=== PATIENT | female | born 1950 | race African-American/Black ===

== ENCOUNTER 2017-11-05 08:32 | Day surgery (SDC) | payer BC, MEDICARE ==
[2017-11-05] MEDS ORDERED: OXYCODONE-ACETAMINOPHEN 5-325 MG TABLET PO PRN ×2 (09:55)
[2017-11-05] MEDS ORDERED: DIPHENHYDRAMINE HCL 50 MG/ML VIAL IV PRN (09:55)
[2017-11-05] MEDS ORDERED: FENTANYL CITRATE INJ/PF 100 MCG/2 ML AMPUL IV PRN ×3 (09:55)
[2017-11-05] MEDS ORDERED: MEPERIDINE HCL/PF INJ 25 MG/1 ML DISP.SYRIN IV PRN (09:55)
[2017-11-05] MEDS ORDERED: PROMETHAZINE HCL INJ 25 MG/1 ML VIAL IV PRN ×2 (09:55)
[2017-11-05] MEDS ORDERED: PROPOFOL INJ 200 MG/20 ML VIAL IV ONE (10:06)
[2017-11-05] MEDS ORDERED: MIDAZOLAM 2 MG/2 ML INJ ONE (10:06)
[2017-11-05] MEDS ORDERED: DEXTROSE 5%-1/2 NORMAL SALINE 1,000 ML IV PRN (10:17)
[2017-11-05] MEDS ORDERED: PROMETHAZINE HCL INJ 25 MG/1 ML VIAL INJ PRN (11:00)
[2017-11-05] MEDS ORDERED: ACETAMINOPHEN 325 MG TABLET PO PRN (11:00)
[2017-11-05] MEDS ORDERED: SIMETHICONE 80 MG TAB.CHEW PO PRN (11:00)
--- NOTE | 2017-11-05 11:27 | Operative Report ---
Operative Report DATE OF SURGERY: 11/05/17 Operative Report: The risks, benefits and alternatives of the procedure including risks of bleeding, perforation requiring surgery are explained to the patient in detail and informed consent is obtained. The patient has taken back to the operating room and placed in the left, lateral decubital position. Timeout was called. Propofol medication is administered. A rectal examination is done which did not reveal any masses, tears or fissures. An Olympus videoscope was inserted into the patient's rectum. The scope was then carefully advanced all the way to the cecum. The cecum was identified by the usual anatomical landmarks including the ileocecal valve as well as the appendiceal office. Photodocumentation is obtained. The scope was then sequentially pulled back via the various segments of the colon including the ascending colon, hepatic flexure, transverse colon, splenic flexure, descending colon and finally into the rectosigmoid portions of the colon. Retroflexion maneuvers performed. The risks benefits and alternatives of the procedure explained to the patient in detail and informed consent is obtained.A GIF Olympus video scope was inserted into the patient's mouth and hypopharynx, the esophagus is identified intubated and insufflated, the scope was then advanced through the esophagus stomach and duodenum, retroflexion maneuver is done, the esophagus stomach and first and second portions of the duodenum examined PREOPERATIVE DIAGNOSIS: Blood in stool POSTOPERATIVE DIAGNOSIS: Internal hemorrhoids. Diverticulosis. Right-sided colon inflammation status post biopsy rule out lymphocytic, microscopic, collagenous colitis. Gastritis status post biopsy rule out Helicobacter pylori OPERATION: Colonoscopy with biopsy. EGD with biopsy SURGEON: ALIZE DONNELLY ANESTHESIA: LMAC TISSUE REMOVED OR ALTERED: As noted above. COMPLICATIONS: None. ESTIMATED BLOOD LOSS: None. INTRAOPERATIVE FINDINGS: As noted above. PROCEDURE: Patient tolerated the procedure well. No immediate postprocedure complications are noted. Patient discharged in good condition. Discharge date 11/05/2017. Discharge diet: Regular. Discharge activity: Regular. 2-3 week follow-up to discuss findings. Patient is instructed call the office or proceed to the emergency room should there be any further problems or questions. We will wait on the pathology.
[2017-11-05 13:19] VITALS: BP 140/65
== END 2017-11-05 11:25 | disposition home or self-care (01) ==
LOC: OROUT 08:32
PROVIDERS: ATTEND Internal Medicine Gastroenterology
DX: K52.9 Noninfective gastroenteritis and colitis, unspecified (principal); K29.50 Unspecified chronic gastritis without bleeding; K57.30 Diverticulosis of large intestine without perforation or abscess without bleeding; K64.8 Other hemorrhoids; K92.1 Melena; E78.5 Hyperlipidemia, unspecified; I10 Essential (primary) hypertension; Z79.899 Other long term (current) drug therapy
CPT/HCPCS: 43239; 45380; 88305 ×2; J2250; J2704; 813

== ENCOUNTER 2018-08-20 17:51 | Emergency (ER) | payer MEDICARE ==
--- NOTE | 2018-08-20 18:15 | ER Document Report ---
ED Medical Screen (RME) - General Chief Complaint: Facial Swelling Stated Complaint: FACIAL SWELLING Time Seen by Provider: 08/20/18 18:08 Primary Care Provider: TIKA VELA PA-C [Primary Care Provider] - Follow up as needed Mode of Arrival: Ambulatory Information source: Patient Notes: Patient with swelling of left side of face and lips. Patient denies any diffic ulty breathing. Patient states that she has been taking lisinopril even though she had a similar episode of facial swelling after taking lisinopril about a year ago. hx: HTN I have greeted and performed a rapid initial assessment of this patient. A comprehensive ED assessment and evaluation of the patient, analysis of test results and completion of the medical decision making process will be conducted by additional ED providers. TRAVEL OUTSIDE OF THE [place] IN LAST 30 DAYS: No - Related Data Allergies/Adverse Reactions: No Known Allergies Allergy (Verified 11/05/17 08:59) Past Medical History - Social History Frequency of alcohol use: None Drug Abuse: None - Past Medical History Cardiac Medical History: Reports: Hx Hypercholesterolemia, Hx Hypertension - ON MEDS Denies: Hx Coronary Artery Disease, Hx Heart Attack Pulmonary Medical History: Reports: Hx Pneumonia - HX OF YRS AGO Denies: Hx Asthma, Hx Bronchitis, Hx COPD Neurological Medical History: Denies: Hx Cerebrovascular Accident, Hx Seizures Renal/ Medical History: Denies: Hx Peritoneal Dialysis Musculoskeltal Medical History: Denies Hx Arthritis - Immunizations Hx Diphtheria, Pertussis, Tetanus Vaccination: Yes History of Influenza Vaccine for 12/2016 - 05/2017 Season: No Physical Exam - Vital signs Vitals: Temp Pulse Resp BP Pulse Ox 98.6 F 70 12 163/73 H 98 08/20/18 18:01 08/20/18 18:01 08/20/18 18:01 08/20/18 18:01 08/20/18 18:01 - General General appearance: Alert Notes: Patient with significant left-sided facial swelling and swelling of the lips. No swelling of the tongue, no swelling to the posterior pharynx. Course - Re-evaluation Re-evalutation: 08/20/18 18:14 Chart brought directly to the back, report given to Dr. Cornejo who will enter pt's orders as needed - Vital Signs Vital signs: Temp Pulse Resp BP Pulse Ox 98.6 F 70 12 163/73 H 98 08/20/18 18:01 08/20/18 18:01 08/20/18 18:01 08/20/18 18:01 08/20/18 18:01 Doctor's Discharge - Discharge Referrals: TIKA VELA PA-C [Primary Care Provider] - Follow up as needed
--- NOTE | 2018-08-20 19:41 | ER Document Report ---
ED General - General Chief Complaint: Facial Swelling Stated Complaint: FACIAL SWELLING Time Seen by Provider: 08/20/18 18:08 Primary Care Provider: TIKA VELA PA-C [Primary Care Provider] - Follow up as needed Mode of Arrival: Ambulatory Notes: Patient is a 67-year-old female with a past medical history of essential hypertension who presents with 3 to 4 hours of progressive worsening swelling of her lips and face. Patient states symptoms started relatively abruptly and have gotten worse since onset. Regards symptoms as being severe. Denies any pain but states that she has a constant tightness sensation across her lips and face. Nothing seems to improve her symptoms. No obvious trigger although she states it did start after she took her morning medications which include lisinopril. 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 Denies difficulty breathing or swallowing. Has not seen her primary care physician regarding today's concerns. TRAVEL OUTSIDE OF THE [place] IN LAST 30 DAYS: No - Related Data Allergies/Adverse Reactions: No Known Allergies Allergy (Verified 11/05/17 08:59) Past Medical History - General Information source: Patient - Social History Smoking Status: Former Smoker Frequency of alcohol use: None Drug Abuse: None Lives with: Alone Family History: Reviewed & Not Pertinent Patient has suicidal ideation: No Patient has homicidal ideation: No - Past Medical History Cardiac Medical History: Reports: Hx Hypercholesterolemia, Hx Hypertension - ON MEDS Denies: Hx Coronary Artery Disease, Hx Heart Attack Pulmonary Medical History: Reports: Hx Pneumonia - HX OF YRS AGO Denies: Hx Asthma, Hx Bronchitis, Hx COPD Neurological Medical History: Denies: Hx Cerebrovascular Accident, Hx Seizures Renal/ Medical History: Denies: Hx Peritoneal Dialysis Musculoskeletal Medical History: Denies Hx Arthritis - Immunizations Hx Diphtheria, Pertussis, Tetanus Vaccination: Yes Hx Pneumococcal Vaccination: 04/22/17 Review of Systems - Review of Systems Notes: Constitutional: Negative for fever. HENT: Positive for lip and facial swelling Eyes: Negative for visual changes. Cardiovascular: Negative for chest pain. Respiratory: Negative for shortness of breath. Gastrointestinal: Negative for abdominal pain, vomiting or diarrhea. Genitourinary: Negative for dysuria. Musculoskeletal: Negative for back pain. Skin: Negative for rash. Neurological: Negative for headaches, weakness or numbness. 10 point ROS negative except as marked above and in HPI. Physical Exam - Vital signs Vitals: Temp Pulse Resp BP Pulse Ox 98.6 F 70 12 163/73 H 98 08/20/18 18:01 08/20/18 18:01 08/20/18 18:01 08/20/18 18:08/20/18 18:01 Interpretation: Hypertensive Notes: PHYSICAL EXAMINATION: GENERAL: Well-appearing, well-nourished and in no acute distress. HEAD: Atraumatic, normocephalic. EYES: Pupils equal round and reactive to light, extraocular movements intact, sclera anicteric, conjunctiva are normal. ENT: nares patent, prominent swelling of the upper and lower lips as well as some mild edema of the face although no posterior pharyngeal swelling. Airway is widely patent. No stridor. NECK: Normal range of motion, supple without lymphadenopathy LUNGS: Breath sounds clear to auscultation bilaterally and equal. No wheezes rales or rhonchi. HEART: Regular rate and rhythm without murmurs ABDOMEN: Soft, nontender, normoactive bowel sounds. No guarding, no rebound. No masses appreciated. EXTREMITIES: Normal range of motion, no pitting or edema. No cyanosis. NEUROLOGICAL: No focal neurological deficits. Moves all extremities spontaneously and on command. PSYCH: Normal mood, normal affect. SKIN: Warm, Dry, normal turgor, no rashes or lesions noted. Course - Re-evaluation Re-evalutation: 08/20/18 19:39 Patient presents with angioedema of the lips secondary to lisinopril. Unfortunately the patient has been seen for this in the past and her primary care doctor is continued to prescribe her lisinopril which she did verify through pharmacy documentation noting the patient did fill a 90-day prescription at the end of June 2018. No oropharyngeal involvement. Airway patent. Phonation normal. Able to handle secretions. Tolerating oral intake without difficulty. Patient was observed and did not develop any progression of the swelling or any evidence of airway occlusion. They have been educated at length about the importance of avoiding ACEi and ARBs. At this time will discharge with return precautions and follow-up recommendations. Verbal discharge instructions given a the bedside and opportunity for questions given. Medication warnings reviewed. Patient is in agreement with this plan and has verbalized understanding of return precautions and the need for primary care follow-up in the next 24-72 hours. 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 This is related to a medication you are taking called lisinopril. You may never take this medication again as you could have a recurrence of an even more severe version of what brought you to to the emergency department today. Please have your primary care physician for recommendations for alternative blood pressure medications. Your swelling will resolve over the next several days. Return to emergency room immediately if you have worsening swelling, shortness of breath, difficulty swallowing, noticed a change in your voice, or have any other symptoms that are of concern to you. Referrals: TIKA VELA PA-C [Primary Care Provider] - Follow up as needed
[2018-08-20 21:47] VITALS: BP 135/74
== END 2018-08-20 22:53 | disposition home or self-care (01) ==
LOC: ER 17:51
DX: T78.3XXA Angioneurotic edema, initial encounter (principal); T46.4X5A Adverse effect of angiotensin-converting-enzyme inhibitors, initial encounter; X58.XXXA Exposure to other specified factors, initial encounter; I10 Essential (primary) hypertension; E78.00 Pure hypercholesterolemia, unspecified
CPT/HCPCS: 99283